=== PATIENT | female | born 1975 | race African-American/Black ===

== ENCOUNTER 2016-12-29 12:07 | Emergency (ER) | payer MEDICAID ==
[~2016-12-29] VITALS: Ht 162.6 cm; Wt 77.3 kg
[2016-12-29] MEDS ORDERED: GABA-531 PO (12:15)
[2016-12-29] MEDS ORDERED: HYDR-4069 PO (12:15)
[2016-12-29] MEDS ORDERED: KETOROLAC TROMETHAMINE 60 MG/2 ML VIAL IM ONE (12:45)
[2016-12-29] MEDS ORDERED: HYDROCODONE/ACETAMINOPHEN 5-325 MG TABLET PO ONE (12:45)
[2016-12-29 14:54] VITALS: BP 118/82
== END 2016-12-29 14:58 | disposition home or self-care (01) ==
LOC: EMS 12:09
DX: S33.5XXA Sprain of ligaments of lumbar spine, initial encounter (principal); S43.402A Unspecified sprain of left shoulder joint, initial encounter; M25.552 Pain in left hip; M25.562 Pain in left knee; F17.210 Nicotine dependence, cigarettes, uncomplicated; W19.XXXA Unspecified fall, initial encounter; Y93.89 Activity, other specified; Y92.512 Supermarket, store or market as the place of occurrence of the external cause; Y99.8 Other external cause status
CPT/HCPCS: 72100; 73030; 73503; 73562; 96372; 99284; J1885

== ENCOUNTER 2017-06-19 02:40 | Emergency (ER) | payer MEDICAID ==
[~2017-06-19] VITALS: Ht 160 cm; Wt 86.0 kg
[~2017-06-19 02:40] MED LIST: GABA-531 PO; HYDR-4069 PO
[2017-06-19] MEDS ORDERED: CARI350 PO (02:56)
[2017-06-19] MEDS ORDERED: HYDR-4061 PO (02:56)
[2017-06-19] MEDS ORDERED: CYCL10TA7 PO (02:56)
[2017-06-19 03:58] LABS: INFLUENZA TYPE A NEGATIVE FOR TYPE A (NEGATIVE); INFLUENZA TYPE B NEGATIVE FOR TYPE B (NEGATIVE)
[2017-06-19 05:42] VITALS: BP 123/66
== END 2017-06-19 06:20 | disposition home or self-care (01) ==
LOC: EMS 02:41
DX: J11.1 Influenza due to unidentified influenza virus with other respiratory manifestations (principal); F17.210 Nicotine dependence, cigarettes, uncomplicated; Z79.899 Other long term (current) drug therapy
CPT/HCPCS: 87804; 99284

== ENCOUNTER 2017-11-05 19:51 | Emergency (ER) | payer MEDICAID ==
[~2017-11-05] VITALS: Ht 160 cm; Wt 86.4 kg
[~2017-11-05 19:51] MED LIST changes: +CARI350 PO; +CYCL10TA7 PO; +HYDR-4061 PO
[2017-11-05] MEDS ORDERED: SULFAMETHOX/TRIMETH DS 800-160 MG/TABLET PO ONE (21:30)
[2017-11-05] MEDS ORDERED: CEPHALEXIN MONOHYDRATE 500 MG CAPSULE PO ONE (21:30)
[2017-11-05 22:04] VITALS: BP 134/73
== END 2017-11-05 22:06 | disposition home or self-care (01) ==
LOC: EMS 19:52
DX: N61.1 Abscess of the breast and nipple (principal); S20.162A Insect bite (nonvenomous) of breast, left breast, initial encounter; F17.210 Nicotine dependence, cigarettes, uncomplicated; W57.XXXA Bitten or stung by nonvenomous insect and other nonvenomous arthropods, initial encounter; Y93.89 Activity, other specified; Y92.89 Other specified places as the place of occurrence of the external cause; Y99.8 Other external cause status
CPT/HCPCS: 99283

== ENCOUNTER 2017-12-09 00:52 | Emergency (ER) | payer MEDICAID ==
[~2017-12-09] VITALS: Ht 160 cm; Wt 90.9 kg
[2017-12-09] MEDS ORDERED: SOMA PO (00:58)
[2017-12-09] MEDS ORDERED: BACTRIM PO (00:58)
[2017-12-09] MEDS ORDERED: CEPHALEXIN PO (00:58)
[2017-12-09] MEDS ORDERED: DiphenhydrAMINE HCL 50 MG/ML VIAL IM ONE (01:45)
[2017-12-09] MEDS ORDERED: PredniSONE 20 MG TABLET PO ONE (01:45)
[2017-12-09 02:00] VITALS: BP 136/79
== END 2017-12-09 02:24 | disposition home or self-care (01) ==
LOC: EMS 00:53
DX: T78.40XA Allergy, unspecified, initial encounter (principal); X58.XXXA Exposure to other specified factors, initial encounter
CPT/HCPCS: 96372; 99283; J1200; J7512

== ENCOUNTER 2018-08-20 01:22 | Emergency (ER) | payer MEDICAID ==
[~2018-08-20] VITALS: Ht 157.5 cm; Wt 86.4 kg
[~2018-08-20 01:22] MED LIST changes: +BACTRIM PO; -CARI350 PO; +CEPHALEXIN PO; -CYCL10TA7 PO; -GABA-531 PO; -HYDR-4061 PO; -HYDR-4069 PO; +SOMA PO
[2018-08-20 01:24] VITALS: BP 112/74
== END 2018-08-20 01:50 | disposition left against medical advice (07) ==
LOC: EMS 01:25
DX: M25.551 Pain in right hip (principal); G89.29 Other chronic pain; Z53.21 Procedure and treatment not carried out due to patient leaving prior to being seen by health care provider

== ENCOUNTER 2019-01-14 19:24 | Emergency (ER) | payer MEDICAID ==
[~2019-01-14] VITALS: Ht 160 cm; Wt 100.0 kg
[2019-01-14] MEDS ORDERED: HYDR-4455 PO (20:06)
[2019-01-14] MEDS ORDERED: CYCL10 PO (20:06)
[2019-01-14 21:28] VITALS: BP 144/87
== END 2019-01-14 22:37 | disposition home or self-care (01) ==
LOC: EMS 19:24
DX: B34.9 Viral infection, unspecified (principal); G89.29 Other chronic pain; F17.210 Nicotine dependence, cigarettes, uncomplicated; Z98.890 Other specified postprocedural states

== ENCOUNTER 2019-01-16 23:50 | Emergency (ER) | payer MEDICAID ==
[~2019-01-16] VITALS: Ht 160 cm; Wt 100.0 kg
[~2019-01-16 23:50] MED LIST changes: -BACTRIM PO; -CEPHALEXIN PO; +CYCL10 PO; +HYDR-4455 PO; -SOMA PO
[2019-01-17] MEDS ORDERED: IPRATROPIUM BROMIDE 0.5 MG/2.5 ML NEB SOLUTION NEB ONE (02:15)
[2019-01-17] MEDS ORDERED: ALBUTEROL SULFATE 2.5 MG/0.5 ML NEB SOLUTION NEB ONE (02:15)
[2019-01-17] MEDS ORDERED: MethylPREDNISolone SOD SUCC 125 MG/2 ML VIAL IVP ONE (02:15)
[2019-01-17] MEDS ORDERED: GuaiFENesin/D-METHORPHAN [SUGAR-FREE] 200-20MG/10 ML SYRUP UDCUP PO ONE (02:15)
[2019-01-17] MEDS ORDERED: KETOROLAC TROMETHAMINE 30 MG/ML VIAL IVP ONE (02:15)
[2019-01-17 02:31] LABS: BASOPHILS % (AUTO) 0.6 % (0.0-2.0); EOSINOPHILS % (AUTO) 2.2 % (1.0-6.0); HEMATOCRIT 40.9 % (36-46); HEMOGLOBIN 13.2 g/dL (12.0-16.0); LYMPHOCYTES # (AUTO) 4.3 K/uL (1.0-4.8); LYMPHOCYTES % (AUTO) 31.6 % (22.0-44.0); MEAN CORPUSCULAR HEMOGLOBIN 30.3 pg (26.0-34.0); MEAN CORPUSCULAR HGB CONC 32.3 G/dL (31.0-37.0); MEAN CORPUSCULAR VOLUME 94 fL (80-100); MONOCYTES # (AUTO) 0.9 K/uL (0.1-1.0); MONOCYTES % (AUTO) 6.3 % (2.0-9.0); NEUTROPHILS # (AUTO) 8.1 K/uL (1.8-7.7); NEUTROPHILS % (AUTO) 59.3 % (40.0-70.0); PLATELET COUNT (AUTO) 351 K/uL (150-450); RED BLOOD CELL COUNT(AUTO) 4.35 MIL/uL (4.00-5.20); RED CELL DISTRIBUTION WIDTH 14.1 % (11.5-14.5)
[2019-01-17 02:51] LABS: B-TYPE NATRIURETIC PEPTIDE 12 pg/mL (0-100)
[2019-01-17 03:12] LABS: ANION GAP 7 mmol/L (8-16); CALCIUM, TOTAL 9.1 mg/dL (8.8-10.5); CARBON DIOXIDE 29 mmol/L (22-29); CHLORIDE 105 mmol/L (98-107); CREATININE 0.93 mg/dL (0.60-1.30); GLOMERULAR FILTR. RATE CALC > 60 mL/min (>60); GLUCOSE,RANDOM 194 mg/dL (70-110); POTASSIUM 3.9 mmol/L (3.5-5.1); SODIUM SERUM 141 mmol/L (136-145); UREA NITROGEN, BLOOD 8 mg/dL (7-18)
[2019-01-17 03:23] LABS: ALANINE AMINOTRANSFERASE 22 U/L (12-78); ALBUMIN 3.4 g/dL (3.4-5.0); ALKALINE PHOSPHATASE 95 U/L (46-116); ASPARTATE AMINOTRANSFERASE 15 U/L (15-37); BILIRUBIN,TOTAL 0.1 mg/dL (0.1-1.0); HCG,QUANTITATIVE < 1 mIU/mL (0-6); TOTAL PROTEIN, SERUM 7.2 g/dL (6.4-8.2)
[2019-01-17 04:11] VITALS: BP 118/73
== END 2019-01-17 04:15 | disposition home or self-care (01) ==
LOC: EMS 23:52
DX: J02.9 Acute pharyngitis, unspecified (principal); J40 Bronchitis, not specified as acute or chronic; F17.210 Nicotine dependence, cigarettes, uncomplicated; G89.29 Other chronic pain
CPT/HCPCS: 36415; 71045; 80053; 83880; 84484; 84702; 85025; 93005; 94640; 96374; 96375; 99285; 99406; J1885; J2930

== ENCOUNTER 2020-09-02 04:23 | Emergency (ER) | payer MEDICAID ==
[~2020-09-02] VITALS: Ht 160 cm; Wt 90.9 kg
[2020-09-02 04:30] VITALS: BP 128/90
[2020-09-02 05:53] LABS: BASOPHILS % (AUTO) 1.1 % (0.0-2.0); EOSINOPHILS % (AUTO) 1.3 % (1.0-6.0); HEMOGLOBIN 13.4 g/dL (12.0-16.0); LYMPHOCYTES % (AUTO) 31.8 % (22.0-44.0); MEAN CORPUSCULAR HEMOGLOBIN 30.7 pg (26.0-34.0); MEAN CORPUSCULAR HGB CONC 32.8 G/dL (31.0-37.0); MEAN CORPUSCULAR VOLUME 94 fL (80-100); MONOCYTES # (AUTO) 0.9 K/uL (0.1-1.0); MONOCYTES % (AUTO) 7.5 % (2.0-9.0); NEUTROPHILS # (AUTO) 7.3 K/uL (1.8-7.7); NEUTROPHILS % (AUTO) 58.3 % (40.0-70.0); PLATELET COUNT (AUTO) 379 K/uL (150-450); RED BLOOD CELL COUNT(AUTO) 4.38 MIL/uL (4.00-5.20); RED CELL DISTRIBUTION WIDTH 14.2 % (11.5-14.5)
[2020-09-02 05:56] LABS: APPEARANCE,URINE CLOUDY (CLEAR); BILIRUBIN,URINE NEGATIVE (NEGATIVE); GLUCOSE, URINE (UA) NEGATIVE (NEGATIVE); KETONES,URINE NEGATIVE (NEGATIVE); LEUKOCYTE ESTERASE ,URINE NEGATIVE (NEGATIVE); NITRATE,URINE NEGATIVE (NEGATIVE); OCCULT BLOOD,URINE SMALL (NEGATIVE); PH,URINE 6.5 (5.0-8.0); PROTEIN,URINE NEGATIVE (NEGATIVE)
[2020-09-02 06:04] LABS: BACTERIA,URINE Few /HPF (None Seen); SQUAMOUS EPITHELIAL CELL,UR Few /LPF (None Seen)
[2020-09-02 06:08] LABS: ANION GAP 7 mmol/L (8-16); CALCIUM, TOTAL 8.6 mg/dL (8.8-10.5); CARBON DIOXIDE 27 mmol/L (22-29); CHLORIDE 104 mmol/L (98-107); CREATININE 0.82 mg/dL (0.60-1.30); GLOMERULAR FILTR. RATE CALC > 60 mL/min (>60); GLUCOSE,RANDOM 128 mg/dL (70-110); POTASSIUM 4.6 mmol/L (3.5-5.1); SODIUM SERUM 138 mmol/L (136-145); UREA NITROGEN, BLOOD 11 mg/dL (7-18)
[2020-09-02 06:26] LABS: ALANINE AMINOTRANSFERASE 25 U/L (12-78); ALBUMIN 3.3 g/dL (3.4-5.0); ALKALINE PHOSPHATASE 87 U/L (46-116); ASPARTATE AMINOTRANSFERASE 11 U/L (15-37); BILIRUBIN,TOTAL 0.1 mg/dL (0.1-1.0); HCG,QUANTITATIVE < 1 mIU/mL (0-6); TOTAL PROTEIN, SERUM 7.1 g/dL (6.4-8.2)
[2020-09-02] MEDS ORDERED: ACETAMINOPHEN 500 MG TABLET PO ONE (06:30)
== END 2020-09-02 07:55 | disposition home or self-care (01) ==
LOC: EMS 04:27
DX: N93.8 Other specified abnormal uterine and vaginal bleeding (principal); F17.210 Nicotine dependence, cigarettes, uncomplicated
CPT/HCPCS: 76856; 80053; 81001; 82962; 84702; 85025; 99284

== ENCOUNTER 2020-09-12 08:22 | Emergency (ER) | payer MEDICAID ==
[~2020-09-12] VITALS: Ht 157.5 cm; Wt 100.0 kg
[2020-09-12] MEDS ORDERED: BECL10.6 IH (08:30)
[2020-09-12] MEDS ORDERED: ALBU8HFA IH (08:30)
[2020-09-12] MEDS ORDERED: METF-960 PO (08:30)
[2020-09-12 08:38] LABS: GLUCOSE,POINT OF CARE 159 MG/DL (70-110)
[2020-09-12 09:29] LABS: BASOPHILS % (AUTO) 1.6 % (0.0-2.0); EOSINOPHILS % (AUTO) 0.9 % (1.0-6.0); HEMATOCRIT 44.9 % (36-46); HEMOGLOBIN 14.8 g/dL (12.0-16.0); LYMPHOCYTES # (AUTO) 1.5 K/uL (1.0-4.8); LYMPHOCYTES % (AUTO) 28.5 % (22.0-44.0); MEAN CORPUSCULAR HEMOGLOBIN 30.7 pg (26.0-34.0); MEAN CORPUSCULAR VOLUME 93 fL (80-100); MONOCYTES # (AUTO) 0.5 K/uL (0.1-1.0); MONOCYTES % (AUTO) 9.2 % (2.0-9.0); NEUTROPHILS # (AUTO) 3.1 K/uL (1.8-7.7); NEUTROPHILS % (AUTO) 59.8 % (40.0-70.0); PLATELET COUNT (AUTO) 314 K/uL (150-450); RED BLOOD CELL COUNT(AUTO) 4.82 MIL/uL (4.00-5.20); RED CELL DISTRIBUTION WIDTH 14.2 % (11.5-14.5)
[2020-09-12 09:38] LABS: ANION GAP 8 mmol/L (8-16); CALCIUM, TOTAL 8.8 mg/dL (8.8-10.5); CARBON DIOXIDE 28 mmol/L (22-29); CHLORIDE 101 mmol/L (98-107); CREATININE 0.73 mg/dL (0.60-1.30); GLOMERULAR FILTR. RATE CALC > 60 mL/min (>60); GLUCOSE,RANDOM 159 mg/dL (70-110); POTASSIUM 4.2 mmol/L (3.5-5.1); SODIUM SERUM 137 mmol/L (136-145); UREA NITROGEN, BLOOD 7 mg/dL (7-18)
[2020-09-12] MEDS: SODIUM CHLORIDE 0.9% 1,000 ML IV ONE (09:40)
[2020-09-12] MEDS: ONDANSETRON HCL 4 MG/2 ML VIAL IVP ONE (09:40)
[2020-09-12 09:43] LABS: ALANINE AMINOTRANSFERASE 33 U/L (12-78); ALBUMIN 3.7 g/dL (3.4-5.0); ALKALINE PHOSPHATASE 108 U/L (46-116); ASPARTATE AMINOTRANSFERASE 18 U/L (15-37); BILIRUBIN,TOTAL 0.3 mg/dL (0.1-1.0); TOTAL PROTEIN, SERUM 7.9 g/dL (6.4-8.2)
[2020-09-12 11:44] VITALS: BP 123/73
== END 2020-09-12 11:48 | disposition home or self-care (01) ==
LOC: EMS 08:26
DX: U07.1 COVID-19 (principal); J12.82 Pneumonia due to coronavirus disease 2019; M79.10 Myalgia, unspecified site; J44.9 Chronic obstructive pulmonary disease, unspecified; E11.9 Type 2 diabetes mellitus without complications; Z87.891 Personal history of nicotine dependence; Z79.84 Long term (current) use of oral hypoglycemic drugs
CPT/HCPCS: 36415; 71045; 80053; 82962; 84484; 85025; 96361; 96374; 99284; J2405; J7030; 99283; 99285

== ENCOUNTER 2021-04-11 02:15 | Emergency (ER) | payer MEDICAID ==
[~2021-04-11] VITALS: Ht 157.5 cm; Wt 100.0 kg
[~2021-04-11 02:15] MED LIST changes: +ALBU8HFA IH; +BECL10.6 IH; -CYCL10 PO; -HYDR-4455 PO; +METF-1211 PO
[2021-04-11 02:17] VITALS: BP 137/77
== END 2021-04-11 03:35 | disposition left against medical advice (07) ==
LOC: EMS 02:17
DX: M54.50 Low back pain, unspecified (principal); Z53.21 Procedure and treatment not carried out due to patient leaving prior to being seen by health care provider

== ENCOUNTER 2021-04-14 08:29 | Emergency (ER) | payer MEDICAID ==
[~2021-04-14] VITALS: Ht 157.5 cm; Wt 98.6 kg
[2021-04-14 08:30] VITALS: BP 122/70
== END 2021-04-14 10:32 | disposition home or self-care (01) ==
LOC: EMS 08:29
DX: R59.0 Localized enlarged lymph nodes (principal); T50.B95A Adverse effect of other viral vaccines, initial encounter; Y92.89 Other specified places as the place of occurrence of the external cause; F17.210 Nicotine dependence, cigarettes, uncomplicated; E11.9 Type 2 diabetes mellitus without complications
CPT/HCPCS: 99282; Z7502

== ENCOUNTER 2021-05-03 09:47 | Emergency (ER) | payer MEDICAID ==
[~2021-05-03] VITALS: Ht 157.5 cm; Wt 99.5 kg
[2021-05-03] MEDS ORDERED: GuaiFENesin/D-METHORPHAN [SUGAR-FREE] 200-20MG/10 ML SYRUP UDCUP PO ONE (10:30)
[2021-05-03] MEDS ORDERED: ACETAMINOPHEN 500 MG TABLET PO ONE (10:30)
[2021-05-03 11:21] VITALS: BP 122/71
[2021-05-03 12:08] LABS: COVID AG,FIA SOURCE NASOPHARYNGEAL
[2021-05-03 12:23] LABS: INFLUENZA TYPE B NEGATIVE FOR TYPE B (NEGATIVE)
[2021-05-03 12:28] LABS: INFLUENZA TYPE A POSITIVE FOR TYPE A (NEGATIVE)
== END 2021-05-03 13:47 | disposition home or self-care (01) ==
LOC: EMS 09:47
DX: J06.9 Acute upper respiratory infection, unspecified (principal); J44.9 Chronic obstructive pulmonary disease, unspecified; E11.9 Type 2 diabetes mellitus without complications; F17.210 Nicotine dependence, cigarettes, uncomplicated; Z79.899 Other long term (current) drug therapy; Z20.822 Contact with and (suspected) exposure to COVID-19
CPT/HCPCS: 82962; 87804; 99283

== ENCOUNTER 2021-08-05 09:00 | Emergency (ER) | payer MEDICAID ==
[~2021-08-05] VITALS: Ht 160 cm; Wt 98.8 kg
[2021-08-05 09:06] VITALS: BP 108/58
[2021-08-05] MEDS ORDERED: D-ME118S47 PO (12:03)
== END 2021-08-05 12:19 | disposition home or self-care (01) ==
LOC: EMS 09:00
DX: J06.9 Acute upper respiratory infection, unspecified (principal); R05.9 Cough, unspecified; E11.9 Type 2 diabetes mellitus without complications; J44.9 Chronic obstructive pulmonary disease, unspecified; Z79.84 Long term (current) use of oral hypoglycemic drugs; Z79.899 Other long term (current) drug therapy
CPT/HCPCS: 71046; 99283

== ENCOUNTER 2021-11-01 15:46 | Emergency (ER) | payer MEDICAID ==
[~2021-11-01] VITALS: Ht 165.1 cm; Wt 86.4 kg
[~2021-11-01 15:46] MED LIST changes: +D-ME118S47 PO
[2021-11-01] MEDS ORDERED: CEPH-558 PO (16:05)
[2021-11-01] MEDS ORDERED: PERTUSS(ACELL),DIPH,TET VAC/PF 0.5 ML SYRINGE IM. ONE (16:15)
[2021-11-01 16:25] VITALS: BP 133/68
== END 2021-11-01 16:46 | disposition home or self-care (01) ==
LOC: EMS 15:55
DX: S81.812A Laceration without foreign body, left lower leg, initial encounter (principal); J44.9 Chronic obstructive pulmonary disease, unspecified; E11.9 Type 2 diabetes mellitus without complications; Z87.39 Personal history of other diseases of the musculoskeletal system and connective tissue; Z98.890 Other specified postprocedural states; W19.XXXA Unspecified fall, initial encounter; Y93.89 Activity, other specified; Y92.89 Other specified places as the place of occurrence of the external cause; Y99.8 Other external cause status
CPT/HCPCS: 82962; 90471; 90715; 99283

== ENCOUNTER 2022-05-25 01:40 | Emergency (ER) | payer MEDICAID ==
[~2022-05-25] VITALS: Ht 157.5 cm; Wt 96.4 kg
[~2022-05-25 01:40] MED LIST changes: +CEPH-558 PO; -D-ME118S47 PO
[2022-05-25 02:12] VITALS: BP 127/67
[2022-05-25] MEDS ORDERED: KETOROLAC TROMETHAMINE 60 MG/2 ML VIAL IM ONE (02:15)
[2022-05-25] MEDS ORDERED: HYDROCODONE/ACETAMINOPHEN 5-325 MG TABLET PO ONE (02:15)
[2022-05-25] MEDS ORDERED: BACL10TA PO (02:37)
[2022-05-25] MEDS ORDERED: HYDR-4723 PO (02:37)
[2022-05-25] MEDS ORDERED: IBUP-1554 PO (02:37)
== END 2022-05-25 03:20 | disposition home or self-care (01) ==
LOC: EMS 01:41
DX: S46.011A Strain of muscle(s) and tendon(s) of the rotator cuff of right shoulder, initial encounter (principal); S40.011A Contusion of right shoulder, initial encounter; S20.229A Contusion of unspecified back wall of thorax, initial encounter; J44.9 Chronic obstructive pulmonary disease, unspecified; G43.909 Migraine, unspecified, not intractable, without status migrainosus; Z98.890 Other specified postprocedural states; W01.0XXA Fall on same level from slipping, tripping and stumbling without subsequent striking against object, initial encounter; Y93.01 Activity, walking, marching and hiking; Y92.89 Other specified places as the place of occurrence of the external cause; Y99.8 Other external cause status
CPT/HCPCS: 99284; 71045; 82962; 73030; 96372; 29240; J1885

== ENCOUNTER 2022-09-24 08:36 | Emergency (ER) | payer MEDICAID ==
[~2022-09-24] VITALS: Ht 160 cm; Wt 89.5 kg
[~2022-09-24 08:36] MED LIST changes: +ALBU18HF12 IH; -ALBU8HFA IH; +BACL10TA PO; +HYDR-4723 PO; +IBUP-1554 PO
[2022-09-24 11:48] VITALS: BP 128/64
== END 2022-09-24 12:23 | disposition home or self-care (01) ==
LOC: EMS 08:38
DX: S80.01XA Contusion of right knee, initial encounter (principal); J44.9 Chronic obstructive pulmonary disease, unspecified; E11.9 Type 2 diabetes mellitus without complications; G89.29 Other chronic pain; M54.9 Dorsalgia, unspecified; F17.210 Nicotine dependence, cigarettes, uncomplicated; Z98.890 Other specified postprocedural states; W01.0XXA Fall on same level from slipping, tripping and stumbling without subsequent striking against object, initial encounter; Y93.89 Activity, other specified; Y92.098 Other place in other non-institutional residence as the place of occurrence of the external cause; Y99.8 Other external cause status
CPT/HCPCS: 99283

== ENCOUNTER 2023-02-01 02:16 | Emergency (ER) | payer MEDICAID ==
[~2023-02-01] VITALS: Ht 160 cm; Wt 105.0 kg
[2023-02-01] MEDS ORDERED: MELO-381 PO (04:20)
[2023-02-01] MEDS ORDERED: KETOROLAC TROMETHAMINE 30 MG/ML VIAL IM ONE (04:30)
[2023-02-01 04:54] VITALS: BP 112/62; PULSE 70; RESP 16; TEMP 98
== END 2023-02-01 04:56 | disposition home or self-care (01) ==
LOC: EMS 02:18
DX: M25.561 Pain in right knee (principal); J44.9 Chronic obstructive pulmonary disease, unspecified; E11.9 Type 2 diabetes mellitus without complications; G89.29 Other chronic pain; M25.519 Pain in unspecified shoulder; F17.210 Nicotine dependence, cigarettes, uncomplicated; Z98.890 Other specified postprocedural states
CPT/HCPCS: 99283; 96372; J1885

== ENCOUNTER 2023-06-13 06:14 | Emergency (ER) | payer MEDICAID ==
[~2023-06-13] VITALS: Ht 160 cm; Wt 86.4 kg
[~2023-06-13 06:14] MED LIST changes: +MELO-381 PO
[2023-06-13 06:22] VITALS: TEMP 98.4
[2023-06-13 06:28] VITALS: BP 131/73; PULSE 89; RESP 15
[2023-06-13] MEDS ORDERED: KETOROLAC TROMETHAMINE 60 MG/2 ML VIAL IM ONE (06:30)
[2023-06-13] MEDS ORDERED: IBUP-1492 PO (06:34)
== END 2023-06-13 06:56 | disposition home or self-care (01) ==
LOC: EMS 06:14
DX: G89.29 Other chronic pain (principal); M25.561 Pain in right knee; M54.9 Dorsalgia, unspecified; M12.561 Traumatic arthropathy, right knee; J44.9 Chronic obstructive pulmonary disease, unspecified; E11.9 Type 2 diabetes mellitus without complications; F17.210 Nicotine dependence, cigarettes, uncomplicated; Z98.890 Other specified postprocedural states
CPT/HCPCS: 99283; 96372; J1885; 29530

== ENCOUNTER 2023-06-23 05:45 | Emergency (ER) | payer MEDICAID ==
[~2023-06-23] VITALS: Ht 160 cm; Wt 98.6 kg
[~2023-06-23 05:45] MED LIST changes: +IBUP-1492 PO; +MELO-107 PO; -MELO-381 PO
[2023-06-23 05:52] VITALS: TEMP 98.7
[2023-06-23] MEDS ORDERED: METH-659 PO (06:48)
[2023-06-23] MEDS: KETOROLAC TROMETHAMINE 60 MG/2 ML VIAL IM ONE (06:55)
[2023-06-23] MEDS: METHOCARBAMOL 500 MG TABLET PO ONE (06:55)
[2023-06-23 07:01] VITALS: BP 119/73; PULSE 70; RESP 16
== END 2023-06-23 07:05 | disposition home or self-care (01) ==
LOC: EMS 05:47
DX: S16.1XXA Strain of muscle, fascia and tendon at neck level, initial encounter (principal); J44.9 Chronic obstructive pulmonary disease, unspecified; E11.9 Type 2 diabetes mellitus without complications; G89.29 Other chronic pain; M25.519 Pain in unspecified shoulder; F17.210 Nicotine dependence, cigarettes, uncomplicated; Z98.890 Other specified postprocedural states; X50.3XXA Overexertion from repetitive movements, initial encounter; Y93.89 Activity, other specified; Y92.89 Other specified places as the place of occurrence of the external cause; Y99.8 Other external cause status
CPT/HCPCS: 99283; 82962; 96372; J1885

== ENCOUNTER 2023-06-24 11:22 | Emergency (ER) | payer MEDICAID ==
[~2023-06-24] VITALS: Ht 160 cm; Wt 98.6 kg
[~2023-06-24 11:22] MED LIST changes: +METH-659 PO
[2023-06-24 11:28] VITALS: TEMP 98.2
[2023-06-24 13:15] VITALS: BP 120/67; PULSE 85; RESP 14
[2023-06-24] MEDS: LIDOCAINE 5% TRANSDERMAL PATCH TD ONE (13:18)
== END 2023-06-24 13:24 | disposition home or self-care (01) ==
LOC: EMS 11:22
DX: S16.1XXA Strain of muscle, fascia and tendon at neck level, initial encounter (principal); J44.9 Chronic obstructive pulmonary disease, unspecified; E11.9 Type 2 diabetes mellitus without complications; F17.210 Nicotine dependence, cigarettes, uncomplicated; Z98.890 Other specified postprocedural states; X58.XXXA Exposure to other specified factors, initial encounter; Y93.89 Activity, other specified; Y92.89 Other specified places as the place of occurrence of the external cause; Y99.8 Other external cause status
CPT/HCPCS: 82962; 99282

== ENCOUNTER 2023-09-18 21:48 | Emergency (ER) | payer MEDICAID ==
[~2023-09-18] VITALS: Ht 157.5 cm; Wt 97.0 kg
[~2023-09-18 21:48] MED LIST changes: +HYDR-4062 PO; -HYDR-4723 PO
[2023-09-18 22:03] VITALS: BP 117/66; PULSE 85; RESP 18; TEMP 97.9
[2023-09-18 22:36] LABS: GLUCOMETER DEV NAME(LOC) ERT.5; GLUCOSE,POINT OF CARE 116 MG/DL (70-110)
== END 2023-09-19 00:13 | disposition left against medical advice (07) ==
LOC: EMS 21:55
DX: R07.89 Other chest pain (principal); Z53.21 Procedure and treatment not carried out due to patient leaving prior to being seen by health care provider
CPT/HCPCS: 82962; 93005

== ENCOUNTER 2024-06-08 09:56 | Emergency (ER) | payer MEDICAID ==
[~2024-06-08] VITALS: Ht 162.6 cm; Wt 86.4 kg
[2024-06-08 10:11] VITALS: BP 129/73; PULSE 93; RESP 18; TEMP 98.3; O2SAT 98
[2024-06-08] MEDS ORDERED: ATOR10TA PO (10:16)
[2024-06-08] MEDS ORDERED: METF-1211 PO (10:16)
[2024-06-08] MEDS: KETOROLAC TROMETHAMINE 30 MG/ML VIAL IM ONE (13:01)
[2024-06-08] MEDS ORDERED: CHOL500013 PO (13:02)
[2024-06-08] MEDS ORDERED: HYDR-4069 PO (13:02)
[2024-06-08] MEDS ORDERED: ATOR20TA65 PO (13:02)
== END 2024-06-08 14:17 | disposition home or self-care (01) ==
LOC: EMS 10:20
DX: M17.11 Unilateral primary osteoarthritis, right knee (principal); J44.9 Chronic obstructive pulmonary disease, unspecified; E11.9 Type 2 diabetes mellitus without complications; F17.210 Nicotine dependence, cigarettes, uncomplicated
CPT/HCPCS: 99283; 73562; 82962; 96372; J1885